=== PATIENT | male | born 1960 | race African-American/Black ===

== ENCOUNTER 2020-12-29 09:13 | Inpatient (IN) | payer MEDICARE, MEDICAID ==
[~2020-12-29] VITALS: Ht 167.6 cm; Wt 96.3 kg
[2020-12-29 10:07] LABS: Basophils # (auto) 0.1 10 ^3/uL (0-0.2); Basophils % (auto) 0.9 % (0.0-2.0); Eosinophils # (auto) 0.1 10 ^3/uL (0-0.8); Eosinophils % (auto) 0.8 % (0.0-7.0); Hematocrit 49.4 % (41.0-53.0); Hemoglobin 17.2 g/dL (13.5-17.5); Lymphocytes # (auto) 2.8 10 ^3/uL (0.4-5.4); Mean Corpuscular Hemoglobin 26.4 pg (28.0-32.0); Mean Corpuscular Hgb Conc. 34.9 g/dL (32.0-36.0); Mean Corpuscular Volume 75.6 fL (80.0-100.0); Monocytes # (auto) 1.2 10 ^3/uL (0-1.3); Neutrophils # (auto) 7.1 10 ^3/uL (1.6-8.6); Neutrophils % (auto) 62.3 % (37.0-80.0); Nucleated Red Blood Cells % 0.1 %; Red Blood Cells 6.53 10^6/uL (4.5-5.90); Red Cell Distribution Width 15.8 % (11.8-14.3); White Blood Cell 11.3 10^3/uL (4.4-10.8)
[2020-12-29 10:23] LABS: Alanine Aminotransferase 29 U/L (16-61); Albumin 3.6 g/dL (3.4-5.0); Anion Gap 9 (5-15); Blood Urea Nitrogen 16 mg/dL (7-18); Carbon Dioxide 19 mmol/L (21-32); Chloride 108 mmol/L (98-107); Glucose 137 mg/dL (74-106); Potassium 4.2 mmol/L (3.5-5.1); Sodium 136 mmol/L (136-145)
[2020-12-29 10:28] LABS: Alkaline Phosphatase 67 U/L (45-117); Aspartate Aminotransferase 21 U/L (15-37); BUN/Creatinine Ratio 15.7; Bilirubin, Total 0.7 mg/dL (0.2-1.0); GFR African American 95 mL/min; GFR Non-African American 79 mL/min
[2020-12-29] MEDS ORDERED: FUROSEMIDE 20 MG/2 ML VIAL IV ONE (13:45)
[2020-12-29] MEDS ORDERED: HYDROcodone-ACET 5/325MG TAB PO ONE (13:45)
[2020-12-29] MEDS ORDERED: ONDANSETRON HCL 4 MG/2 ML VIAL IV PRN (15:15)
[2020-12-29] MEDS ORDERED: MORPHINE SULF INJ 2 MG/ML SYRINGE 1ML IV PRN ×2 (15:15)
[2020-12-29] MEDS ORDERED: ACETAMINOPHEN 500 MG TAB PO PRN (15:15)
[2020-12-29] MEDS ORDERED: NITROGLYCERIN 0.4 MG SL TAB SL PRN (15:15)
[2020-12-29] MEDS ORDERED: DEXTROSE (50%) 50ML SYRG IV PRN (15:15)
[2020-12-29] MEDS: InsuLIN REG 1unit/0.01ml Soln (100units/ml) SC SCH ×2 (17:00→21:31)
[2020-12-29] MEDS: ACCU-CHEK COMFORT CURVE STRIP VI SCH ×2 (17:15→21:31)
[2020-12-29] MEDS ORDERED: FURO40TA4 PO (17:16)
[2020-12-29] MEDS ORDERED: MAGN241.6 PO (17:16)
[2020-12-29] MEDS: CLINDAMYCIN 300MG IV 50 ML IV SCH (17:16)
[2020-12-29] MEDS ORDERED: ROSU1TAB15 PO (17:16)
[2020-12-29] MEDS ORDERED: SPIR25TA8 PO (17:16)
[2020-12-29] MEDS ORDERED: COLC1CAP PO (17:20)
[2020-12-29] MEDS ORDERED: LINA5TAB PO (17:20)
[2020-12-29] MEDS ORDERED: ASPI-498 PO (17:20)
[2020-12-29] MEDS ORDERED: APIX5TAB PO (17:20)
[2020-12-29] MEDS ORDERED: CARV25TA55 PO (17:20)
[2020-12-29] MEDS ORDERED: INDO50CA82 PO (17:20)
[2020-12-29] MEDS ORDERED: AMLO-496 PO (17:20)
[2020-12-29] MEDS ORDERED: SACU1TAB7 PO (17:20)
[2020-12-29] MEDS ORDERED: OMEG300C7 PO (17:21)
[2020-12-29] MEDS ORDERED: GABA300C10 PO (17:21)
[2020-12-29 18:15] VITALS: BP 147/103
[2020-12-29] MEDS ORDERED: IPRIH (21:28)
[2020-12-29] MEDS: APIXABAN 5 MG TAB PO SCH (21:29)
[2020-12-29] MEDS: CARVEDILOL 3.125 MG TAB PO SCH (21:30)
[2020-12-29] MEDS: SACUBITRIL-VALSARTAN 24mg/26mg TAB PO SCH (21:30)
[2020-12-29 22:00] VITALS: BP 154/98
[2020-12-30] MEDS: CLINDAMYCIN 300MG IV 50 ML IV SCH ×3 (00:55→16:43)
[2020-12-30] MEDS: HYDROcodone-ACET 5/325MG TAB PO PRN ×2 (02:42→09:57)
[2020-12-30 05:00] VITALS: BP 138/99
[2020-12-30] MEDS: ACCU-CHEK COMFORT CURVE STRIP VI SCH ×4 (06:09→21:49)
[2020-12-30] MEDS: InsuLIN REG 1unit/0.01ml Soln (100units/ml) SC SCH ×4 (06:10→22:22)
[2020-12-30 08:00] VITALS: BP 144/95
[2020-12-30] MEDS: SPIRONOLACTONE 25 MG TAB PO SCH (09:56)
[2020-12-30] MEDS: APIXABAN 5 MG TAB PO SCH ×2 (09:56→21:49)
[2020-12-30] MEDS: SACUBITRIL-VALSARTAN 24mg/26mg TAB PO SCH ×2 (09:56→21:49)
[2020-12-30] MEDS: FAMOTIDINE 20 MG TAB PO SCH (09:57)
[2020-12-30] MEDS: CARVEDILOL 3.125 MG TAB PO SCH ×2 (09:57→21:51)
[2020-12-30] MEDS ORDERED: FUROSEMIDE 40 MG TAB PO ONE (11:30)
[2020-12-30] MEDS ORDERED: methylPREDNISolone SOD SUCC 40 MG/ML VL IV ONE (11:30)
[2020-12-30 12:00] VITALS: BP 132/92
[2020-12-30 13:40] LABS: Urine Bacteria NONE SEEN /hpf (None Seen); Urine Blood TRACE /uL (Negative); Urine Specific Gravity 1.011 (1.001-1.035); Urine WBC 4 /hpf (0 - 3)
[2020-12-30 16:00] VITALS: BP 169/76
[2020-12-30] MEDS ORDERED: levoFLOXacin 500MG 100 ML IV SCH (16:00)
[2020-12-30 20:00] VITALS: BP 160/85
[2020-12-30] MEDS: ATORVASTATIN 20 MG TAB PO SCH (21:49)
[2020-12-30] MEDS: AMIODARONE HCL 200 MG TAB PO SCH (21:51)
[2020-12-30] MEDS: methylPREDNISolone SOD SUCC 40 MG/ML VL IV SCH (21:52)
[2020-12-30 22:00] VITALS: BP 160/85
[2020-12-31] MEDS: CLINDAMYCIN 300MG IV 50 ML IV SCH ×2 (00:34→10:03)
[2020-12-31 05:00] VITALS: BP 159/89
[2020-12-31] MEDS: ACCU-CHEK COMFORT CURVE STRIP VI SCH ×4 (06:02→22:04)
[2020-12-31] MEDS: InsuLIN REG 1unit/0.01ml Soln (100units/ml) SC SCH ×4 (06:03→22:06)
[2020-12-31 07:50] LABS: Magnesium 2.6 mg/dL (1.6-2.6); Potassium 4.4 mmol/L (3.5-5.1)
[2020-12-31 09:00] VITALS: BP 143/99
[2020-12-31] MEDS: AMIODARONE HCL 200 MG TAB PO SCH ×2 (10:03→22:03)
[2020-12-31] MEDS: methylPREDNISolone SOD SUCC 40 MG/ML VL IV SCH (10:03)
[2020-12-31] MEDS: SACUBITRIL-VALSARTAN 24mg/26mg TAB PO SCH ×2 (10:03→22:04)
[2020-12-31] MEDS: FAMOTIDINE 20 MG TAB PO SCH (10:03)
[2020-12-31] MEDS: SPIRONOLACTONE 25 MG TAB PO SCH (10:04)
[2020-12-31] MEDS: CARVEDILOL 3.125 MG TAB PO SCH ×2 (10:04→22:03)
[2020-12-31] MEDS: APIXABAN 5 MG TAB PO SCH ×2 (10:04→22:03)
[2020-12-31] MEDS: FUROSEMIDE 40 MG TAB PO SCH (10:05)
[2020-12-31] MEDS: CEPHALEXIN 250 MG CAP PO SCH ×2 (13:43→22:04)
[2020-12-31] MEDS ORDERED: CEPHALEXIN 250 MG CAP PO SCH (14:00)
[2020-12-31 17:00] VITALS: BP 154/99
[2020-12-31 22:00] VITALS: BP 134/96
[2020-12-31] MEDS: ATORVASTATIN 20 MG TAB PO SCH (22:04)
[2021-01-01 05:00] VITALS: BP 157/97
[2021-01-01] MEDS: ACCU-CHEK COMFORT CURVE STRIP VI SCH (06:14)
[2021-01-01] MEDS: CEPHALEXIN 250 MG CAP PO SCH (06:14)
[2021-01-01] MEDS: InsuLIN REG 1unit/0.01ml Soln (100units/ml) SC SCH (06:27)
[2021-01-01 08:15] VITALS: BP 141/94
[2021-01-01 09:00] VITALS: BP 141/94
[2021-01-01] MEDS: SPIRONOLACTONE 25 MG TAB PO SCH (09:52)
[2021-01-01] MEDS: AMIODARONE HCL 200 MG TAB PO SCH (09:52)
[2021-01-01] MEDS: FUROSEMIDE 40 MG TAB PO SCH (09:53)
[2021-01-01] MEDS: APIXABAN 5 MG TAB PO SCH (09:53)
[2021-01-01] MEDS: SACUBITRIL-VALSARTAN 24mg/26mg TAB PO SCH (09:53)
[2021-01-01] MEDS: FAMOTIDINE 20 MG TAB PO SCH (09:53)
[2021-01-01] MEDS: CARVEDILOL 3.125 MG TAB PO SCH (09:53)
[2021-01-01 09:58] VITALS: BP 141/96
[2021-01-01] MEDS ORDERED: predniSONE 20 MG TAB PO SCH (10:00)
== END 2021-01-01 10:50 | disposition home or self-care (01) | DRG 602 ==
LOC: ER 09:13 → TELE 15:05 → TELE-EAST 18:13
PROVIDERS: ADMIT Nurse Practitioner Acute Care; ATTEND Internal Medicine
PROC: 4B02XTZ Measurement of Cardiac Defibrillator, External Approach (ICD-10-PCS; principal; 2020-12-31)
DX: L03.116 Cellulitis of left lower limb (principal); I50.23 Acute on chronic systolic (congestive) heart failure; D68.69 Other thrombophilia; Z68.1 Body mass index [BMI] 19.9 or less, adult; I48.91 Unspecified atrial fibrillation; M10.9 Gout, unspecified; Z20.822 Contact with and (suspected) exposure to COVID-19; E11.9 Type 2 diabetes mellitus without complications; I11.0 Hypertensive heart disease with heart failure; F17.200 Nicotine dependence, unspecified, uncomplicated; E66.9 Obesity, unspecified; E78.5 Hyperlipidemia, unspecified; Z88.0 Allergy status to penicillin; Z88.8 Allergy status to other drugs, medicaments and biological substances; Z95.810 Presence of automatic (implantable) cardiac defibrillator; Z79.899 Other long term (current) drug therapy; Z79.01 Long term (current) use of anticoagulants; Z79.84 Long term (current) use of oral hypoglycemic drugs; Z71.6 Tobacco abuse counseling; I50.9 Heart failure, unspecified
CPT/HCPCS: 36415; 71045; 73700; 80053; 81001; 82962; 83036; 83735; 83880; 84132; 84443; 84484; 84550; 85025; 85049; 87040; 87426; 93005; 93306; 96374; G0378; J1815; J1956; J3490